=== PATIENT | male | born 1980 | race Hispanic/Latino ===

== ENCOUNTER 2018-01-18 09:16 | Emergency (ER) | payer MEDICAID ==
[2018-01-18 09:22] VITALS: RESP 18; TEMP 98; O2SAT 97
[2018-01-18] MEDS: Albuterol-Ipratrop 3 mg / 0.5 (3 ml) UD IH SCH ×3 (10:30→11:00)
--- NOTE | 2018-01-18 10:53 | C.PDOC ---
History Of Present Illness 37 year old male presents to the ED complaining of throat pain, coughing and chills since AM. Denies any sick contacts at home or recent travels. Denies fever, ear pain, rhinorrhea, or any other associated symptoms. Time Seen by Provider: 01/18/18 10:10 Chief Complaint (Nursing): ENT Problem History Per: Patient History/Exam Limitations: no limitations Onset/Duration Of Symptoms: Hrs Current Symptoms Are (Timing): Still Present Past Medical History Reviewed: Historical Data, Nursing Documentation, Vital Signs Vital Signs: Last Vital Signs Temp 98 F 01/18/18 09:19 Pulse 98 H 01/18/18 09:19 Resp 18 01/18/18 09:19 BP 136/85 01/18/18 09:19 Pulse Ox 97 01/18/18 09:19 - Medical History PMH: Asthma Other PMH: ITP Surgical History: No Surg Hx Family History: States: No Known Family Hx - Social History Hx Alcohol Use: Yes Hx Substance Use: No - Immunization History Hx Tetanus Toxoid Vaccination: Yes Hx Influenza Vaccination: No Hx Pneumococcal Vaccination: Yes Review Of Systems Except As Marked, All Systems Reviewed And Found Negative. Constitutional: Positive for: Chills. Negative for: Fever ENT: Positive for: Throat Pain. Negative for: Ear Pain, Nose Discharge Respiratory: Positive for: Cough Physical Exam - Physical Exam Appears: Well, Non-toxic Skin: Normal Color, Warm, Dry, No Rash Head: Atraumatic, Normacephalic Eye(s): bilateral: Other (minimal conjunctival erythema) Ear(s): Bilateral: Normal Nose: Normal Oral Mucosa: Moist Tongue: Normal Appearing Lips: Normal Appearing Gingiva: Normal Appearing Throat: Erythema (uvular swelling and erythema and tonsilar erythema bl), No Exudate, No Drooling, No Mass Neck: Normal, Normal ROM, Supple Lymphatic: Normal Exam, No Adenopathy Chest: Symmetrical Cardiovascular: Rhythm Regular Respiratory: No Accessory Muscle Use, No Rales, No Rhonchi, No Stridor, Wheezing (mild bl), No Other (no retructions) Gastrointestinal/Abdominal: Normal Exam Extremity: Normal ROM Extremity: Bilateral: Atraumatic ED Course And Treatment O2 Sat by Pulse Oximetry: 97 (RA) Pulse Ox Interpretation: Normal Reassessment Condition: Improved (on re-eval no wheezing, pt reports improvement of pain) Medical Decision Making Medical Decision Making: Plan - Nebulizer treatment - Raoud Strep Test - Prednisone 60mg PO - Motrin 600mg PO On re-examination, patient is resting comfortably in no acute distress, no wheezing. Patient reports improvement of symptoms. Patient given follow up instructions. Instructed to return to ER if symptoms worsen or new symptoms arise. Disposition Counseled Patient/Family Regarding: Studies Performed, Diagnosis, Need For Fol lowup, Rx Given - Disposition Referrals: [facility] [Outside] [facility] [Outside] Disposition: HOME/ ROUTINE Disposition Time: 11:31 Condition: STABLE Additional Instructions: FOLLOW UP WITH PMD OR CLINIC ON FRIDAY FOR RE-EVALUATION. IF SYMPTOMS GET WORSE OR ANY NEW CONCERNING SYMPTOMS DEVELOP RETURN TO ED. Prescriptions: Ibuprofen [Motrin Tab] 1 tab PO Q6H PRN #15 tab PRN Reason: Pain, Moderate (4-7) Prednisone 50 mg PO DAILY #4 tablet Albuterol HFA [Ventolin HFA 90 mcg/actuation (8 g)] 2 puff IH Q4H PRN #1 bottle PRN Reason: Cough Instructions: Viral Upper Respiratory Infection, Adult (DC) Forms: [employer] (Latvian) - Clinical Impression Clinical Impression: URI (upper respiratory infection) - PA / TRANSCRIPTION MANAGER / Resident Statement MD/DO has reviewed & agrees with the documentation as recorded. - Scribe Statement The provider has reviewed the documentation as recorded by the Scribe Natasha Arenas All medical record entries made by the Scribe were at my direction and personally dictated by me. I have reviewed the chart and agree that the record accurately reflects my personal performance of the history, physical exam, medical decision making, and the department course for this patient. I have also personally directed, reviewed, and agree with the discharge instructions and disposition.
[2018-01-18] MEDS ORDERED: Albuterol-Ipratrop 3 mg / 0.5 (3 ml) UD ONE (10:57)
[2018-01-18 11:02] VITALS: BP 116/79; PULSE 67
== END 2018-01-18 11:41 | disposition home or self-care (01) ==
LOC: C.ER 09:16
DX: J06.9 Acute upper respiratory infection, unspecified (principal)